=== PATIENT | male | born 1965 | race Two or more races ===

== ENCOUNTER 2020-06-16 20:18 | Emergency (ER) | payer SELFPAY ==
[2020-06-17 00:05] VITALS: BP 112/84; PULSE 69; TEMP 97.7; BMI 25.8
== END 2020-06-17 00:05 | disposition home or self-care (01) ==
LOC: EDBD → FER 20:18
DX: F10.920 Alcohol use, unspecified with intoxication, uncomplicated (principal)
CPT/HCPCS: 99281-25